=== PATIENT | female | born 1945 | race Caucasian/White ===

== ENCOUNTER → 2017-07-20 | Outpatient (CLI) | payer MEDICARE, BC ==
[~2017-07-20] MED LIST: AMLO5TAB2 PO; ATOR10TA15 PO; HYDR25TA5 PO; SYMB160A INH; VALS1TAB65 PO
[2017-07-20 12:46] LABS: BACTERIA, URINE OCC /hpf; BLOOD, URINE NEG (NEG); COMMENT (UR) CULT NOT INDICATED; CULTURE IF INDICATED CULT NOT INDICATED; GLUCOSE,URINE NEG (NEG); KETONE, URINE NEG (NEG); MUCUS URINE FEW /lpf (OCC); NITRITE,URINE NEG (NEG); PH, URINE 5.5 (5.0-8.5); SQUAMOUS EPITHELIAL CELL URINE 1 /hpf (0-5); URINE COLOR LIGHT-YELLOW (YELLW/STRAW)
[2017-07-20 12:50] LABS: BASOPHIL % 0.5 % (0.0-2.0); EOSINOPHIL # 0.1 TH/MM3 (0-0.4); HEMATOCRIT 37.4 % (35.0-46.0); HEMO FLAGS DIFF FINAL; LYMPHOCYTE # 1.6 TH/MM3 (1.0-4.8); MEAN CORPUSCULAR HEMOGLOBIN 31.5 PG (27.0-34.0); MEAN CORPUSCULAR HGB CONC 34.6 % (32.0-36.0); MONO % 6.1 % (0.0-8.0); NEUT % 73.4 % (16.0-70.0); PLATELET COUNT 281 TH/MM3 (150-450); RED BLOOD COUNT 4.11 MIL/MM3 (4.00-5.30); RED CELL DISTRIBUTION WIDTH 13.4 % (11.6-17.2); WHITE BLOOD COUNT 8.2 TH/MM3 (4.0-11.0)
[2017-07-20 12:55] LABS: APTT (PATIENT) 26.3 SEC (24.3-30.1); PROTHROMBIN TIME - PATIENT 9.9 SEC (9.8-11.6)
--- NOTE | 2017-07-20 13:00 | RADRPT ---
EXAM DATE/TIME: 07/20/2017 12:31 [place] COMPARISON: No previous studies available for comparison. INDICATIONS : Evaluate for pneumonia, pneumothorax or communicable disease. Pre op left knee replacement. MEDICAL HISTORY : Asthma SURGICAL HISTORY : None. ENCOUNTER: Initial ACUITY: 1 day PAIN SCORE: 0/10 LOCATION: Bilateral chest FINDINGS: Moderate hyperinflation is present linear elliptical opacity in both base is probably atelectasis. Th e heart and pulmonary vascularity are normal.. Degenerative changes thoracic spine. CONCLUSION: No acute disease. Alfred Levine MD FACR on July 20, 2017 at 12:57 Board Certified Radiologist. This report was verified electronically.
[2017-07-20 13:18] LABS: ANION GAP 9 MEQ/L (5-15); AST (GOT) 6 U/L (15-37); BLOOD UREA NITROGEN 23 MG/DL (7-18); CHLORIDE 102 MEQ/L (98-107); GLOMERULAR FILTRATION RATE 43 ML/MIN (>89); GLUCOSE,FASTING 94 MG/DL (74-99); SODIUM (NA) 138 MEQ/L (136-145)
[2017-07-20 13:23] LABS: ALKALINE PHOSPHATASE 72 U/L (45-117); ALT (GPT) 18 U/L (10-53); TOTAL BILIRUBIN ADULT 0.6 MG/DL (0.2-1.0); WESTERGREN SEDIMENTATION RATE 16 mm/hr (0-30)
--- NOTE | 2017-07-21 12:36 | EKG ---
Date Performed: 07/20/2017 Time Performed: 11:54:44 PTAGE: 71 years EKG: Sinus arrhythmia Normal ECG NO PREVIOUS TRACING DOCTOR: Lopez Weaver Interpretating Date/Time 07/21/2017 12:36:04
== END ==
LOC: CPRE 11:30
PROVIDERS: ATTEND Orthopaedic Surgery
DX: Z01.810 Encounter for preprocedural cardiovascular examination (principal); Z01.811 Encounter for preprocedural respiratory examination; Z01.812 Encounter for preprocedural laboratory examination; Z01.818 Encounter for other preprocedural examination; M17.12 Unilateral primary osteoarthritis, left knee
CPT/HCPCS: 36415; 71020; 80053; 81001; 85025; 85610; 85652; 85730; 93005

== ENCOUNTER → 2018-01-25 | Outpatient (CLI) | payer MEDICARE, BC ==
[2018-01-25 09:57] LABS: AUTOMATED NEUTROPHIL # 4.1 TH/MM3 (1.8-7.7); BASOPHIL # 0.1 TH/MM3 (0-0.2); EOSINOPHIL # 0.1 TH/MM3 (0-0.4); EOSINOPHIL % 1.6 % (0.0-4.0); HEMATOCRIT 38.2 % (35.0-46.0); HEMOGLOBIN 12.8 GM/DL (11.6-15.3); LYMPH % 19.5 % (9.0-44.0); LYMPHOCYTE # 1.1 TH/MM3 (1.0-4.8); MEAN CELL VOLUME 92.2 FL (80.0-100.0); MEAN CORPUSCULAR HGB CONC 33.6 % (32.0-36.0); MEAN PLATELET VOLUME 7.2 FL (7.0-11.0); MONO % 8.1 % (0.0-8.0); MONOCYTE # 0.5 TH/MM3 (0-0.9); NEUT % 69.8 % (16.0-70.0); PLATELET COUNT 281 TH/MM3 (150-450); RED BLOOD COUNT 4.15 MIL/MM3 (4.00-5.30); RED CELL DISTRIBUTION WIDTH 13.7 % (11.6-17.2); WHITE BLOOD COUNT 5.9 TH/MM3 (4.0-11.0)
[2018-01-25 10:16] LABS: BILIRUBIN, URINE NEG (NEG); BLOOD, URINE SMALL (NEG); GLUCOSE,URINE NEG (NEG); KETONE, URINE NEG (NEG); MUCUS URINE FEW /lpf (OCC); NITRITE,URINE NEG (NEG); SQUAMOUS EPITHELIAL CELL URINE 1 /hpf (0-5); URINE COLOR YELLOW (YELLW/STRAW); URINE LEUKOCYTE ESTERASE NEG (NEG)
[2018-01-25 10:23] LABS: INTERNATIONAL NORMALIZED RATIO 1.1 RATIO; PROTHROMBIN TIME - PATIENT 10.7 SEC (9.8-11.6)
--- NOTE | 2018-01-25 10:31 | RADRPT ---
EXAM DATE: 01/25/2018 10:15 AM EDT AGE/SEX: 72 years / Female INDICATIONS: Evaluate for pneumonia, pneumothorax, or any communicable disease. Pre op knee surgery. CLINICAL DATA: This is the patient's initial encounter. Patient reports that signs and symptoms have been present for 1 day and indicates a pain score of 0/10. MEDICAL/SURGICAL HISTORY: None. None. COMPARISON: C, CHEST PA & LAT, 07/20/2017. . FINDINGS: Moderate hyperinflation with minimal interstitial changes. The heart and pulmonary vascularity are no rmal. The portion of the bony skeleton visualized is unremarkable. CONCLUSION: Hyperinflation otherwise negative Electronically signed by: Alfred Levine MD 01/25/2018 10:30 AM EDT
[2018-01-25 10:38] LABS: WESTERGREN SEDIMENTATION RATE 19 mm/hr (0-30)
[2018-01-25 10:48] LABS: AST (GOT) 9 U/L (15-37); BICARBONATE 25.3 MEQ/L (21.0-32.0); BLOOD UREA NITROGEN 24 MG/DL (7-18); CALCIUM 8.8 MG/DL (8.5-10.1); CHLORIDE 102 MEQ/L (98-107); CREATININE 1.47 MG/DL (0.50-1.00); GLOMERULAR FILTRATION RATE 35 ML/MIN (>89); SODIUM (NA) 137 MEQ/L (136-145)
[2018-01-25 10:49] LABS: GLUCOSE,FASTING 95 MG/DL (74-99)
[2018-01-25 10:56] LABS: ALKALINE PHOSPHATASE 96 U/L (45-117); ALT (GPT) 21 U/L (10-53); TOTAL BILIRUBIN ADULT 0.8 MG/DL (0.2-1.0); TOTAL PROTEIN 7.6 GM/DL (6.4-8.2)
--- NOTE | 2018-01-25 22:37 | EKG ---
Date Performed: 01/25/2018 Time Performed: 09:37:28 PTAGE: 72 years EKG: Sinus rhythm POSSIBLE LEFT ATRIAL ENLARGEMENT POOR R WAVE PROGRESSION ABNORMAL ECG Since the PREVIOUS TRACING , no significant change noted DOCTOR: Oscar Kirby Interpretating Date/Time 01/25/2018 22:36:12
== END ==
LOC: CPRE 09:14
PROVIDERS: ATTEND Orthopaedic Surgery
DX: Z01.810 Encounter for preprocedural cardiovascular examination (principal); Z01.811 Encounter for preprocedural respiratory examination; Z01.812 Encounter for preprocedural laboratory examination; Z01.818 Encounter for other preprocedural examination; M17.12 Unilateral primary osteoarthritis, left knee; M25.50 Pain in unspecified joint; M79.609 Pain in unspecified limb; Z96.60 Presence of unspecified orthopedic joint implant; R94.31 Abnormal electrocardiogram [ECG] [EKG]
CPT/HCPCS: 36415; 71046; 80053; 81001; 85025; 85610; 85652; 85730; 93005

== ENCOUNTER 2018-02-10 08:30 | Inpatient (IN) ==
[2018-02-17] MEDS ORDERED: Metoprolol Tartrate 25 MG Tablet PO SCH (06:00)
[2018-02-17] MEDS ORDERED: Insulin NovoLIN Regular Correctional Sugar Inj SQ SCH (06:00)
[2018-02-17] MEDS ORDERED: Sodium Chlor 0.9% Inj 500 ML IV.SIG SCH (06:00)
[2018-02-17] MEDS ORDERED: Chlorhexidine Gluconate 2% 1 Pack (2 Cloths) TOPICAL SCH (06:00)
[2018-02-17] MEDS ORDERED: Dexamethasone Inj 20 MG/5 ML Vial IV.PUSH ONE (06:08)
[2018-02-17] MEDS ORDERED: Dexamethasone Inj 20 MG/5 ML Vial IV.PUSH SCH (06:15)
[2018-02-17] MEDS ORDERED: Sodium Chlor 0.9% Inj 73.07 ML, Ropivacaine 0.5% PF Inj 24.63 ML, Ketorolac Inj 30 MG, ... P-ARTICULR SCH ×5 (06:15)
[2018-02-17] MEDS ORDERED: Chlorhexidine 4% Topical 120 APPLIC/120 ML Bottle TOPICAL SCH (06:15)
[2018-02-17] MEDS ORDERED: SODIUM CHLOR 0.9% IV.SIG SCH ×2 (07:00→12:00)
[2018-02-17] MEDS ORDERED: TRANEXAMIC ACID IV.SIG SCH ×2 (07:00→12:00)
[2018-02-17] MEDS ORDERED: Vancomycin Inj 1 GM/200 ML PIGGYBACK IV.SIG SCH (07:00)
[2018-02-17] MEDS ORDERED: ceFAZolin 2 GM Premix Inj 2 GM/50 ML PIGGYBACK IV.SIG ONE (07:11)
[2018-02-17] MEDS ORDERED: Bupivacaine Liposomal PF 1.3% Inj 20 ML Vial ONE (07:42)
[2018-02-17] MEDS ORDERED: Bupivacaine/Dextrose 0.75% Inj 2 ML Ampul ONE (07:55)
[2018-02-17] MEDS ORDERED: Propofol Inj 500 MG/50 ML Vial ONE (07:58)
[2018-02-17] MEDS ORDERED: Bisacodyl 10 MG Supp RECTAL PRN (10:00)
[2018-02-17] MEDS ORDERED: Morphine Inj 4 MG/ML Vial IV.PUSH PRN (10:00)
[2018-02-17] MEDS ORDERED: Aluminum/Magnesium/Simethacone Susp 30 ML UDC PO PRN (10:00)
[2018-02-17] MEDS ORDERED: Post-op Orders (for Pharmacy) OTHER STA (10:00)
--- NOTE | 2018-02-17 10:14 | P.OP ---
- Preoperative Diagnosis (1) Osteoarthritis of left knee - Postoperative Diagnosis (1) Osteoarthritis of left knee Date of procedure: 02/17/18 Procedure: Left total knee arthroplasty Anesthesia: regional (Adductor canal), spinal Surgeon: John Hoang MD Cokeman: YOHANA Graham The surgical procedure was assisted by my Advanced Registered Nurse Practitioner. My AGRONOMIST presence was necessary throughout this case for the manipulation and positioning of the surgical extremity. My AGRONOMIST was assisting me throughout the duration of this procedure. The skill set of an Advance Registered Nurse Practitioner was medically necessary to complete this procedure. During the surgical case, the surgical clinical reviewer was working at the back table and the Advance Registered Nurse Practitioner was directly assisting me. Estimated blood loss (mL): 100 Tourniquet time (min): 43 Operation and Findings: IMPLANTS: DePuy Attune: Patella: size 35. Femur, posterior stabilized size 6. Tibia, rotating platform size 5. Tibial insert, rotating platform, posterior stabilized size 5 mm thickness. ESTIMATED BLOOD LOSS: 100 cc TOURNIQUET TIME: 43 minutes at 250 mmHg pressure. JUSTIFICATION FOR PROCEDURE: The patient has end-stage osteoarthritis to the knee. There is an attached conservative measures pathway form in the chart that describes the nonoperative measures that were undertaken prior to consideration of surgical management. The patient understood the risks and benefits of surgical management. See my office notes for further details PROCEDURE: The patient was brought back to the operative theatre. Adequate anesthesia was obtained. The patient received intravenous vancomycin and Ancef. The lower extremity was prepped and draped in the usual sterile fashion.The leg was exsanguinated, the tourniquet was raised. A standard anterior incision was performed followed by medial parapatellar arthrotomy was performed. End-stage arthritis was identified. Osteotomy of the patella was performed. We drilled holes for the patella. We trialed the patella component. We perfused the distal femoral cut off of the [employer] custom patient specific guide. The remnants of the ACL and PCL were resected. Osteotomy of the proximal tibia was performed, utilizing the [employer] proximal tibia custom guide. We verified the correct angle using a drop mago. The femur was sized, and four chamfer cuts were completed in 3 of external rotation. We decided to use a 6 mm femur as this seemed to fit better than the 7 mm per the guide. We then cut the central box in the distal femur to replace the PCL. We resected the remnants of the menisci and removed osteophytes off of the femur and tibia. We then trialed the knee. We punched the tibia for the keel. We used a 5 mm tibia as opposed to the 7 from the [employer]. The 5 fit better. Excess cement was removed. Standard cementing techniques were used. We removed excess cement. We trialed the knee again and the final polyethylene thickness was chosen to provide extension to 0 degrees, and flexion of 140 degrees to gravity. The ligaments were appropriately balanced. Lateral release was necessary to obtain excellent patellofemoral tracking. The tourniquet was released and adequate hemostasis was obtained. An intra- articular injection of a ropivacaine cocktail was injected. The posterior knee was inspected for excess cement, which was removed. The final polyethylene was put into position after thorough irrigation. We then closed deep fascia with a #2 Stratafix followed by skin with 2-0 Vicryl followed by Dermabond dressing. Postop plan is to weight-bear as tolerated. DVT prophylaxis will be performed with SCDs, TRINA man, early mobilization, and Eliquis 2.5 p.o. twice daily while in the hospital with resumption of outpatient Eliquis after discharge..
--- NOTE | 2018-02-17 10:55 | XR ---
EXAM DATE: 02/17/2018 10:42 AM EDT AGE/SEX: 72 years / Female INDICATIONS: Post op left knee. CLINICAL DATA: This is the patient's initial encounter. Patient reports that signs and symptoms have been present for 1 day and indicates a pain score of Nonresponsive. MEDICAL/SURGICAL HISTORY: None. . Right femoral mago. COMPARISON: No prior exams available for comparison. FINDINGS: Status post placement of a knee prosthesis. There is good position and alignment with the bony struct ures. Postsurgical changes are demonstrated. There is a medullary mago in the femur. The bony structur es are grossly intact. CONCLUSION: Good position and alignment on this postoperative study. Electronically signed by: Vincent Mohamud MD 02/17/2018 10:53 AM EDT
[2018-02-17] MEDS: Sod Chloride 0.9% Inj 1,000 ML IV.CONT SCH (11:15)
--- NOTE | 2018-02-17 15:28 | P.DCO ---
- Physical Therapy Physical Therapy: Gait training, Transfer training, bed to chair Knee: Total knee Left Lower Extremity Weight Bearing: Weight bearing as tolerated Left Lower Extremity Range of Motion: Active ROM - Nursing Dressing changes: Do not change dressing Additional instructions: First dressing change will be in the office The patient will resume her normal home medication of Eliquis with normal dosing once discharged home for DVT prophylaxis. - Certification Need for Home Health services: I have seen patient Milvia Odonnell on 02/17/18. My clinical findings support the need for the requested home health care services because: Need for Home Health Services: Limited ability to care for self, High risk of falls Homebound Certification: I certify that my clinical findings support that this patient is homebound because: Homebound Certification: Post-op weakness, Unsteady gait/balance
[2018-02-17] MEDS: Multivitamin/Minerals Therapeutic Tablet PO SCH (20:06)
[2018-02-17] MEDS: Senna/Docusate Sodium 8.6/50 MG Tablet PO SCH (20:06)
[2018-02-17] MEDS ORDERED: Zolpidem Tartrate 5 MG Tablet PO PRN (21:00)
[2018-02-17] MEDS: Budesonide-Formoterol 160/4.5 MCG 6 GM Inhaler INH SCH (22:45)
[2018-02-18] MEDS: Sod Chloride 0.9% Inj 1,000 ML IV.CONT SCH ×2 (03:44→20:34)
[2018-02-18 05:48] LABS: Hematocrit 28.1 % (35.0-46.0); Hemoglobin 9.6 gm/dL (11.6-15.3)
[2018-02-18] MEDS ORDERED: Dexamethasone Inj 20 MG/5 ML Vial IV.PUSH ONE (08:00)
[2018-02-18] MEDS: hydroCHLOROthiazide 25 MG Tablet PO SCH (08:41)
[2018-02-18] MEDS: Multivitamin/Minerals Therapeutic Tablet PO SCH ×2 (08:41→20:35)
[2018-02-18] MEDS: Senna/Docusate Sodium 8.6/50 MG Tablet PO SCH ×2 (08:41→20:35)
[2018-02-18] MEDS: amLODIPine 5 MG Tablet PO SCH (08:42)
[2018-02-18] MEDS: Amiodarone 200 MG Tablet PO SCH (08:42)
[2018-02-18] MEDS: Budesonide-Formoterol 160/4.5 MCG 6 GM Inhaler INH SCH ×2 (10:30→20:36)
--- NOTE | 2018-02-18 18:52 | P.PNOP ---
Subjective Interval history: The patient is resting in bed with minimal pain to the left knee. Patient states she has not had to take any pain medication today. The patient has been ambulatory. Physical Exam Vital signs: Vital Signs 02/17/18 20:00 02/17/18 22:10 02/18/18 00:00 Temperature 97.3 F L 97.8 F Pulse Rate 63 71 Respiratory Rate 20 18 17 Blood Pressure 105/51 L 110/56 L Pulse Oximetry 93 L 92 L 02/18/18 02:00 02/18/18 04:00 02/18/18 08:00 Temperature 97.4 F L 97.8 F Pulse Rate 66 65 Respiratory Rate 18 17 18 Blood Pressure 125/58 L 124/54 L Pulse Oximetry 91 L 92 L 02/18/18 12:00 02/18/18 16:00 Temperature 97.4 F L 97.7 F Pulse Rate 66 62 Respiratory Rate 18 18 Blood Pressure 117/53 L 113/55 L Pulse Oximetry 85 L 92 L Intake & Output 02/17/18 02/18/18 02/18/18 18:59 06:59 18:59 Intake Total 1600 / 1600 100 / 100 720 / 720 Output Total 100 / 100 Balance 1500 / 1500 100 / 100 720 / 720 Weight 74.3 kg 74.3 kg Intake: IV 1600 / 1600 100 / 100 LR 1000 mL Inj 1,000 ML @ 30 1500 / 1500 mls/hr IV.SIG .Q24H [facility] Rx#: [id number] Ancef Inj 1,000 MG In NS Inj 100 / 100 100 / 100 100 ML @ 200 mls/hr IV.SIG Q6H [facility] Rx#:[id number] Oral 720 / 720 Output: Estimated Blood Loss 100 / 100 Other: # Voids 1 2 4 Date of Last Bowel Movement 02/14/18 02/16/18 02/16/18 # Bowel Movements 0 Narrative: The patient's dressing is intact with a small amount of serosanguineous drainage. EHL/TA/G are intact. 2+ pedal pulse. The patient's calf is soft and nontender. Sensation is intact to light touch distally. - Constitutional no acute distress - Routine HEENT Exam Head: Present: normocephalic, atraumatic Eye: Present: PERRL ENT: Present: mucous membranes moist - Routine Neck Exam Present: supple, full ROM - Routine Extremities Exam Present: pulses intact, normal capillary refill - Routine Skin Exam Present: dry, warm - Routine Neurological Exam Present: oriented X3, CN II-XII intact Results - Labs CBC & Chem 7: 02/18/18 04:46 Laboratory Results - last 24 hr 02/18/18 04:46 Hgb 9.6 L Hct 28.1 L Assessment and Plan - Assessment and Plan POD #1: Left total knee arthroplasty 1. Weightbearing as tolerated on left lower extremity. 2. Eliquis 2.5 mg twice daily while in the hospital and then the patient will resume her normal dose of Eliquis 5 mg twice daily upon discharge for DVT prophylaxis. 3. Ice as needed for swelling. 4. Anticipatory discharge to [facility] rehab on Thursday. 5. The patient will follow up with Dr. Hoang and/or YOHANA Conley as previously scheduled.
[2018-02-19] MEDS: Sod Chloride 0.9% Inj 1,000 ML IV.CONT SCH ×2 (02:47→15:20)
[2018-02-19 04:26] LABS: Hematocrit 26.1 % (35.0-46.0); Hemoglobin 8.7 gm/dL (11.6-15.3)
[2018-02-19] MEDS: Senna/Docusate Sodium 8.6/50 MG Tablet PO SCH ×2 (09:47→20:32)
[2018-02-19] MEDS: hydroCHLOROthiazide 25 MG Tablet PO SCH (09:47)
[2018-02-19] MEDS: Amiodarone 200 MG Tablet PO SCH (09:47)
[2018-02-19] MEDS: Multivitamin/Minerals Therapeutic Tablet PO SCH ×2 (09:48→20:32)
[2018-02-19] MEDS: amLODIPine 5 MG Tablet PO SCH (09:48)
--- NOTE | 2018-02-19 13:47 | P.PNOP ---
Subjective Interval history: The patient is ambulating from her Physical Therapy class. Patient reports some stiffness but minimal pain. Physical Exam Vital signs: Vital Signs 02/18/18 16:00 02/18/18 19:17 02/18/18 19:27 Temperature 97.7 F 98.2 F Pulse Rate 62 74 Respiratory Rate 18 18 Blood Pressure 113/55 L 93/54 L Pulse Oximetry 92 L 92 L 92 L 02/18/18 20:00 02/19/18 00:20 02/19/18 08:00 Temperature 97.8 F 97.1 F L Pulse Rate 74 65 Respiratory Rate 18 18 18 Blood Pressure 116/57 L 104/51 L Pulse Oximetry 92 L 93 L Intake & Output 02/18/18 02/19/18 02/19/18 18:59 06:59 18:59 Intake Total 720 / 720 480 / 480 Balance 720 / 720 480 / 480 Weight 74.3 kg Intake: Oral 720 / 720 480 / 480 Other: # Voids 4 4 Date of Last Bowel Movement 02/16/18 02/17/18 # Bowel Movements 0 0 Narrative: The patient's dressing is intact with a small amount of serosanguineous drainage. No new drainage. EHL/TA/G are intact. 2+ pedal pulse. The patient' s calf is soft and nontender. Sensation is intact to light touch distally. Results - Labs CBC & Chem 7: 02/19/18 03:51 Laboratory Results - last 24 hr 02/19/18 03:51 Hgb 8.7 L Hct 26.1 L Assessment and Plan - Assessment and Plan POD #2: Left total knee arthroplasty 1. Weightbearing as tolerated on left lower extremity. 2. Eliquis 2.5 mg twice daily while in the hospital and then the patient will resume her normal dose of Eliquis 5 mg twice daily upon discharge for DVT prophylaxis. 3. Ice as needed for swelling. 4. Anticipatory discharge to [facility] rehab on Thursday. 5. The patient will follow up with Dr. Hoang and/or YOHANA Conley as previously scheduled.
[2018-02-19] MEDS: Budesonide-Formoterol 160/4.5 MCG 6 GM Inhaler INH SCH ×2 (15:19→20:35)
[2018-02-19 21:40] VITALS: RESP 20
--- NOTE | 2018-02-20 06:39 | P.PNOP ---
Subjective Interval history: POD 3 s/p left TKA doing well. pain controlled. of bed with walker and doing well Physical Exam Vital signs: Vital Signs 02/19/18 08:00 02/19/18 12:00 02/19/18 16:00 Temperature 97.1 F L 97.1 F L 97.2 F L Pulse Rate 65 65 65 Respiratory Rate 18 18 18 Blood Pressure 104/51 L 106/53 L 116/58 L Pulse Oximetry 93 L 95 94 L 02/19/18 20:00 02/20/18 00:00 Temperature 98.1 F 99.5 F Pulse Rate 71 71 Respiratory Rate 20 20 Blood Pressure 115/53 L 110/59 L Pulse Oximetry 90 L 92 L Intake & Output 02/19/18 02/19/18 02/20/18 06:59 18:59 06:59 Intake Total 480 / 480 Balance 480 / 480 Weight 74.3 kg Intake: Oral 480 / 480 Other: # Voids 4 4 Date of Last Bowel Movement 02/17/18 02/19/18 # Bowel Movements 0 1 Narrative: LLE: slight bloody drainage on bandage. nvi distally Results - Labs CBC & Chem 7: 02/19/18 03:51 Assessment and Plan - Assessment and Plan POD #3: Left total knee arthroplasty 1. Weightbearing as tolerated on left lower extremity. 2. Eliquis 2.5 mg twice daily while in the hospital and then the patient will resume her normal dose of Eliquis 5 mg twice daily upon discharge for DVT prophylaxis. 3. Ice as needed for swelling. 4. Anticipatory discharge to [facility] rehab today. 5. The patient will follow up with Dr. Hoang and/or YOHANA Conley as previously scheduled.
[2018-02-20] MEDS: Senna/Docusate Sodium 8.6/50 MG Tablet PO SCH (09:09)
[2018-02-20] MEDS: Amiodarone 200 MG Tablet PO SCH (09:09)
[2018-02-20] MEDS: hydroCHLOROthiazide 25 MG Tablet PO SCH (09:09)
[2018-02-20] MEDS: Multivitamin/Minerals Therapeutic Tablet PO SCH (09:10)
[2018-02-20] MEDS: amLODIPine 5 MG Tablet PO SCH (09:10)
[2018-02-20] MEDS: Sod Chloride 0.9% Inj 1,000 ML IV.CONT SCH (09:11)
[2018-02-20 09:34] VITALS: TEMP 98
[2018-02-20] MEDS: Budesonide-Formoterol 160/4.5 MCG 6 GM Inhaler INH SCH (11:33)
[2018-02-20 14:54] VITALS: BP 129/60; PULSE 76; O2SAT 92
--- NOTE | 2018-03-03 15:56 | P.DS ---
Date of admission: 02/17/18 05:19 Primary care physician: Ernst Crespo MD Attending physician on discharge: John Hoang Anticipated date of discharge: 02/20/18 Brief History from admission: The patient was admitted for severe OA of the left knee to have a left TKA DS: Diagnosis - Discharge Diagnosis (1) Status post total knee replacement, left Status: Acute Diagnosis: Principal (2) Osteoarthritis of left knee Status: Acute Diagnosis: Principal DS: Medications - Discharge Medications Prescriptions: hydrocodone-acetaminophen [Grenora] 1 - 2 tab PO Q4H PRN #50 tab PRN Reason: Pain DS: Summary Hospital Course: The patient was admitted to the hospital for severe osteoarthritis of the [left ] knee to have a [left] total knee arthroplasty. The patient's surgery went well with no complication. The patient is on a [regular] diet. The patient's DVT prophylaxis includes use of [resuming Eliquis]. The patient is weightbearing as tolerated. The patient was discharged [to [facility] rehab] and will follow up in the office with Dr. Hoang and/or YOHANA Conley as previously scheduled. - Time Spent with Patient Total time spent providing and/or coordinating discharge services: Greater than 30 minutes - Quality: VTE Deep Vein Thrombosis/Pulmonary Embolism Present on Admission: Yes Exam Narrative: See last progress note for physical exam. Results Procedures completed during hospitalization: Left TKA - Impressions ITS Impressions Knee X-Ray 02/17/18 09:59 CONCLUSION: Good position and alignment on this postoperative study. Discharge Plan - Discharge Disposition Patient Disposition: 03 Discharge to SNF - Discharge Condition Condition: Stable - Discharge Order Discharge Orders: Discharge Order (Routine); Ordered 02/17/18 Ordered By: Kenyon Duval Orthopedic Clear for Discharge (Routine); Ordered 02/20/18 Ordered By: John Hoang - Discharge Details Anticipated Discharge Date: 02/20/18 Discharge Comment: F/U in the office as previously scheduled with Dr. Hoang or YOHANA Conley - Physicians Team Primary Care Provider: Ernst Crespo Attending Provider: John Hoang - Rxs /Orders / Referrals /Forms Prescriptions: New hydrocodone-acetaminophen [Grenora] 5-325 mg Tablet 1 - 2 tab PO Q4H PRN (Reason: Pain) Qty: 50 RF: 0 Continue amiodarone 200 mg Tablet 200 mg PO DAILY amlodipine 5 mg Tablet 5 mg PO DAILY apixaban [Eliquis] 5 mg Tablet 5 mg PO BID atorvastatin 10 mg Tablet 10 mg PO DAILY budesonide-formoterol [Symbicort] 160-4.5 mcg/actuation Hfa Aerosol Inhaler 2 puff INHALATION BID hydrochlorothiazide 25 mg Tablet 25 mg PO QAM valsartan 160 mg Tablet 160 mg PO DAILY Ambulatory Orders / Order Sets / DME: Adjustable Commode 3-in-1 (1 each) (Routine) Location: Determined by Patient Ordered By: Kenyon Duval CPM - Continuous Passive Motion Machine (1 each) (Routine) Location: Determined by Patient Ordered By: Kenyon Duval Walker With Front Wheels (1 each) (Routine) Location: Determined by Patient Ordered By: Kenyon Duval Referrals: John Hoang MD [Physician] - See Instructions Ernst Crespo MD [Primary Care Provider] - See Instructions - Discharge Instructions Patient Printed Instructions: Hydrocodone/Acetaminophen (By mouth), Precautions after Total Joint Replacement Surgery (ED), Joint Replacement Surgery (DC), Knee Replacement (DC) Additional Instructions: Make or keep your follow up appointments. Take medications as directed. Maintain safety precautions to prevent falls. - Post Discharge Care Plan Care Plan Goals: Discharge Care Plan Goals for Total Knee Replacement You have undergone knee replacement surgery. Your doctor replaced your painful joint with an artificial joint to relieve pain and restore movement. Here are some goals to help you heal well. Directions to Meet your Goals: 1. Activity & Exercises: * Take pain medicine as directed by your doctor. * Sit in chairs with arms. The arms make it easier for you to stand up or sit down. * Dont sit for more than 30 to 45 minutes at one time. * Nap if you are tired, but dont stay in bed all day. * Sleep with a pillow under your ankle, not your knee. Be sure to change the position of your leg during the night. * Wear the support stockings you were given in the hospital as directed by your surgeon. 2. Prevent Falls/Injury: The crandall to successful recovery is movement with walking and exercising your knee as directed by your doctor. * Arrange your household to keep the items you need handy. Keep everything else out of the way. * Remove items that may cause you to fall, such as throw rugs and electrical cords. * Use nonslip bath mats, grab bars, an elevated toilet seat, and a shower chair in your bathroom * Sit on a shower stool or chair when you shower to keep from falling. * Until your balance, flexibility, and strength improve, use a cane, crutches, a walker, handrails, or someone to help you. * Keep your hands free by using a backpack, americo pack, apron, or pockets to carry things * Walk up and down stairs with support. Try one step at a time. Use the railing if possible. * Dont drive until your doctor says its OK. * Dont drive while you are taking opioid pain medicine. 3. Precautions: * Prevent infection. Any infection will need to be treated immediately. Call your doctor right away if you think you might have an infection. * Tell your dentist that you have an artificial joint and take antibiotics as prescribed before any dental work. * Tell all your healthcare providers about your artificial joint before any medical procedure. * Maintain a healthy weight. Get help to lose any extra pounds. Added body weight puts stress on the knee. * Your medications may include blood-thinning medicine to prevent blood clots or antibiotics to prevent infection-prevent any falls or cuts 4. Incision Care: * Prevent infection by washing your hands often. If an infection occurs, it will need to be treated right away. * Call your doctor right away if you think you may have an infection. Symptoms include a fever or an incision that leaks white, green, or yellow fluid. * Don't soak your incision in water until your doctor says its OK. This means no hot tubs, bathtubs, or swimming pools. * Follow your doctor's instructions for changing the dressing. * Dont rub the incision, or apply creams or lotions to it. * If you notice any redness or drainage around the bandage site, contact your surgeon's office immediately. 5. Follow-Up: Do Not miss your follow-up appointment. Keep up with all your appointments and yearly check ups When to call your doctor: Call your doctor right away if you have: Fever of 100.4F (38C) or higher, or as directed by your doctor Shaking chills Stiffness, or inability to move the knee Increased swelling in your leg Increased redness, tenderness, or swelling in or around the knee incision Drainage from the knee incision Increased knee pain Call 911: Call 911 right away if you have: Chest pain Shortness of breath Any pain or tenderness in your calf
== END 2018-02-20 14:11 ==
LOC: HSDI 02-17 05:19 → N06 02-17 12:40
PROVIDERS: ADMIT Orthopaedic Surgery; ATTEND Orthopaedic Surgery
DX: Z87.891 Personal history of nicotine dependence; I48.91 Unspecified atrial fibrillation; J45.909 Unspecified asthma, uncomplicated; M81.0 Age-related osteoporosis without current pathological fracture; M17.12 Unilateral primary osteoarthritis, left knee; Z79.02 Long term (current) use of antithrombotics/antiplatelets; E78.00 Pure hypercholesterolemia, unspecified